=== PATIENT | female | born 1980 | race Caucasian/White ===

== ENCOUNTER 2021-03-10 09:33 | Inpatient (IN) | payer MEDICAID ==
[2021-03-07 13:31] LABS: BASOPHILS % (AUTO) 0.4 % (0-1); EOSINOPHILS % (AUTO) 0.6 % (0-6); LYMPHOCYTES # (AUTO) 1.8 X10'3 (1.1-4.8); LYMPHOCYTES % (AUTO) 23.9 % (21-51); MEAN CORPUSCULAR VOLUME 78.8 FL (78-98); MEAN PLATELET VOLUME 8.7 FL (7.4-10.4); MONOCYTES # (AUTO) 0.3 X10'3 (0-0.9); MONOCYTES % (AUTO) 3.8 % (2-12); NEUTROPHILS # (AUTO) 5.5 X10'3 (1.8-7.7); NEUTROPHILS % (AUTO) 71.3 % (42-75); PRE OP HEMATOCRIT 41.5 % (35.0-45.0); PRE OP HEMOGLOBIN 13.7 g/dL (12.0-16.0); PRE OP PLATELET COUNT 270 X10'3 (140-440); RED BLOOD COUNT 5.26 X10'6 (4.20-5.60); RED CELL DISTRIBUTION WIDTH 15.2 % (11.5-14.5)
[2021-03-07 13:47] LABS: ALBUMIN 3.6 G/DL (3.4-5.0); ALKALINE PHOSPHATASE 87 IU/L (46-116); BLOOD UREA NITROGEN 12 MG/DL (7-18); CHLORIDE 109 MMOL/L (99-107); PRE OP ALT 29 U/L (30-65); PRE OP ANION GAP 11 (8-16); PRE OP AST 12 U/L (10-37); PRE OP BILIRUB, TOTAL 0.5 MG/DL (0.0-1.0); PRE OP GLUCOSE 127 MG/DL (70-104); PRE OP SODIUM 144 MMOL/L (135-145); TOTAL CARBON DIOXIDE 24.3 MMOL/L (24-32); TOTAL PROTEIN 7.2 G/DL (6.4-8.2); eGFR 62 ML/MIN
[2021-03-10] VITALS (17 sets, daily range): BP systolic 106–147; BP diastolic 58–92
[~2021-03-10] VITALS: Ht 170.2 cm; Wt 128.0 kg
[~2021-03-10 09:33] MED LIST: MEDR150V IM; ceFAZolin 1GM/D5W- ADD-VANTAGE 50 ML IV ONE; cefazolin/dext.iso 2gm/100ml 100 ML IV ONE; famotidine 20mg tablet PO ONE; ringers solution, lacted 1,000 ML IV SCH
[2021-03-10 11:01] LABS: PRE OP PARTIAL THROMB. TIME 26 SECONDS (22-32)
[2021-03-10 11:03] LABS: HCG SERUM QL NEGATIVE
[2021-03-10 12:38] LABS: CLARITY,URINE SLIGHTLY CLOUDY (Clear); COLOR,URINE RED (Yellow); GLUCOSE, URINE NEGATIVE (Neg); KETONES,URINE NEGATIVE (Neg); LEUKOCYTE ESTERASE ,URINE NEGATIVE (Neg); NITRITES, URINE NEGATIVE (Neg); OCCULT BLOOD,URINE LARGE (Neg); PH,URINE 5.5 (4.8-8.0); PROTEIN,URINE 100 mg/dl (Neg)
[2021-03-10 12:40] LABS: UA COLLECTION TYPE CLN CATCH MIDSTREAM
[2021-03-10 12:49] LABS: RBC,URINE TNTC /HPF (0-2)
[2021-03-10 12:50] LABS: BACTERIA,URINE 1+ /HPF (Neg); SQUAMOUS EPITHELIAL CELL,UR FEW /LPF (FEW)
[2021-03-10] MEDS ORDERED: BUPIVAcaine/PF 2.5 mg/ml (0.25%) 30ml vial ONE (14:19)
[2021-03-10] MEDS ORDERED: fentaNYL /PF 50mcg/ml 5ml ampule ONE (14:33)
[2021-03-10] MEDS ORDERED: sevoflurane 250ml liquid IH ONE (14:33)
[2021-03-10] MEDS ORDERED: midazolam 1 mg/ML 2ml injection ONE (14:33)
[2021-03-10] MEDS ORDERED: morphine 4 MG/ML inj SYRINge IV PRN ×2 (16:15→17:45)
[2021-03-10] MEDS ORDERED: proCHLORperazine 10 MG/2 ml inj IV PRN (16:15)
[2021-03-10] MEDS ORDERED: meperidine/PF 25mg/ml syringe IV PRN ×3 (16:15)
[2021-03-10] MEDS ORDERED: morphine 2 MG/ML inj. syringe IV PRN (16:15)
[2021-03-10] MEDS ORDERED: ringers solution, lacted 1,000 ML IV SCH (16:15)
[2021-03-10] MEDS ORDERED: ondansetron/PF 4mg/2ml inj IV PRN ×2 (16:15→17:45)
[2021-03-10] MEDS ORDERED: BUPIVAcaine/PF 2.5mg/ml (0.25%) 10ml vial ONE (17:10)
[2021-03-10] MEDS ORDERED: BUPIVACAINE liposomal/PF 13.3 MG/ML vial IM ONE (17:12)
[2021-03-10] MEDS ORDERED: propofol inj 20 ML IV ONE (17:16)
[2021-03-10] MEDS ORDERED: neostigmine methylsulfate 1 MG/ML 10ml vial ONE (17:16)
[2021-03-10] MEDS ORDERED: acetaminophen 1,000mg/100ml IV 100 ML IV ONE (17:16)
[2021-03-10] MEDS ORDERED: ondansetron/PF 4mg/2ml inj ONE (17:16)
[2021-03-10] MEDS ORDERED: rocuronium 10mg/ml inj IV ONE (17:16)
[2021-03-10] MEDS ORDERED: glycopyrrolate 0.2mg/ml inj ONE (17:16)
[2021-03-10] MEDS ORDERED: LIDOcaine 2% (20mg/ml) 5ml vial ONE (17:16)
[2021-03-10] MEDS ORDERED: dexamethasone sod phosphate 4mg/ml inj. ONE (17:16)
[2021-03-10] MEDS ORDERED: meperidine/PF 25mg/ml syringe ONE (17:36)
[2021-03-10] MEDS ORDERED: HYDROcodone/acetaminophen 10/325mg tab PO PRN (17:45)
--- NOTE | 2021-03-10 18:05 | NUR ---
Received from OR via BED IN STABLE CONDITION , accompanied by Anesthesiologist and PLANIMETER OPERATOR report given by Anesthesiolgist. ABDOMINAL BINDER IN PLACE. VS. STABLE. Addendum: 03/10/21 at 1818 by Guadalupe Roach RN Amended: Links added.
--- NOTE | 2021-03-10 18:53 | NUR ---
PATIENT TRANSFERRED FROM THE PACU TO PATIENTS ROOM PN BED IN STABLE CONDITION AFTER REPORT GIVEN TO BHAVESH FIELDS TAKING OVER PATIENTS CARE. PERSONAL BELONGINGS SENT. Addendum: 03/10/21 at 1999 by Guadalupe Roach RN Amended: Links added.
--- NOTE | 2021-03-10 19:43 | NUR ---
185: Received report from DONNIE Roberts 1909 patient arrived to unit in hospital bed with recovery nurses transporting, patient came up with at bedside and belongings. Abdomen binder is on, abdomen is soft with three lap sites, wo on the left and on on the RUQ. Big band aides covering all three, CDI. POst op VSS started. Will continue to monitor.
[2021-03-10] MEDS: ketorolac trometh. 30mg/ml inj. IV SCH (19:51)
[2021-03-11] VITALS: BP 124/69
[2021-03-11] MEDS ORDERED: ceFAZolin inj. 1,000 MG in dextrose 5%-water 50ml 50 ML IV SCH ×2
[2021-03-11] MEDS: ceFAZolin 1GM/D5W- ADD-VANTAGE 50 ML IV SCH ×2 (00:06→09:46)
[2021-03-11] MEDS: potassium CL 20mEq in D5-1/2NS 1,000 ML IV SCH ×3 (01:45→09:52)
[2021-03-11] MEDS: ketorolac trometh. 30mg/ml inj. IV SCH ×2 (02:13→09:47)
[2021-03-11 04:30] VITALS: BP 103/70
--- NOTE | 2021-03-11 06:15 | NUR ---
Patient in room [facility]. I have received report from DONNIE Velázquez and had the opportunity to ask questions and assume patient care.
--- NOTE | 2021-03-11 06:17 | NUR ---
Problems reprioritized. Patient report given, questions answered & plan of care reviewed with DONNIE Waters.
[2021-03-11 06:30] VITALS: BP 125/78
[2021-03-11 06:51] LABS: BASOPHILS % (AUTO) 0.1 % (0-1); EOSINOPHILS % (AUTO) 0.2 % (0-6); HEMATOCRIT 37.2 % (35.0-45.0); HEMOGLOBIN 12.4 g/dl (12.0-16.0); LYMPHOCYTES # (AUTO) 1.4 X10'3 (1.1-4.8); LYMPHOCYTES % (AUTO) 15.4 % (21-51); MEAN CORPUSCULAR HEMOGLOBIN 26.7 PG (27.0-31.0); MEAN CORPUSCULAR HGB CONC 33.4 g/dL (33.0-36.5); MEAN CORPUSCULAR VOLUME 79.9 FL (78-98); MEAN PLATELET VOLUME 8.4 FL (7.4-10.4); MONOCYTES # (AUTO) 0.6 X10'3 (0-0.9); MONOCYTES % (AUTO) 6.2 % (2-12); NEUTROPHILS # (AUTO) 7.2 X10'3 (1.8-7.7); NEUTROPHILS % (AUTO) 78.1 % (42-75); PLATELET COUNT 277 X10'3 (140-440); RED BLOOD COUNT 4.66 X10'6 (4.20-5.60); RED CELL DISTRIBUTION WIDTH 15.1 % (11.5-14.5); WHITE BLOOD COUNT 9.2 X10'3 (4.5-11.0)
[2021-03-11 07:25] LABS: ALBUMIN 3.1 G/DL (3.4-5.0); ANION GAP 11 (8-16); BLOOD UREA NITROGEN 11 MG/DL (7-18); BUN/CREATININE RATIO 16.4 (6.6-38.0); CALCIUM 8.5 MG/DL (8.5-10.1); CHLORIDE 109 MMOL/L (99-107); CREATININE 0.67 MG/DL (0.40-0.90); GLUCOSE 129 MG/DL (70-104); POTASSIUM 3.6 MMOL/L (3.5-5.1); SODIUM 142 MMOL/L (135-145); TOTAL CARBON DIOXIDE 22.3 MMOL/L (24-32); eGFR > 90 ML/MIN
[2021-03-11 11:00] VITALS: BP 125/66
--- NOTE | 2021-03-11 12:35 | NUR ---
DC inst provided to pt. IV DC'd, tip intact. All belongings sent w/pt. Pt ambulated to vehicle.
== END 2021-03-11 12:43 | disposition home or self-care (01) | DRG 227 ==
LOC: PAS 09:33 → SUR 3N 17:45 → OBSVTOIN 17:45
PROVIDERS: ADMIT Surgery; ATTEND Surgery
PROC: 8E0W4CZ Robotic Assisted Procedure of Trunk Region, Percutaneous Endoscopic Approach (ICD-10-PCS; 2021-03-10)
PROC: 0WUF4JZ Supplement Abdominal Wall with Synthetic Substitute, Percutaneous Endoscopic Approach (ICD-10-PCS; principal; 2021-03-10 14:33)
DX: K43.2 Incisional hernia without obstruction or gangrene (principal)
CPT/HCPCS: 36415; 80048; 80053; 81001; 82948; 84703; 85025; 85610; 85730; 86885; 86900; 86901; 93005; A4215; A4618; C1758; C1781; C9290; G0378; J0131; J0690; J1100; J1885; J2001; J2175; J2250; J2405; J2704; J2710; J3010; J3480; J3490; J7120; U0003

== ENCOUNTER 2022-12-11 06:01 | Inpatient (IN) | payer MEDICAID ==
[2022-12-08 10:37] LABS: CLARITY,URINE SLIGHTLY CLOUDY (Clear); COLOR,URINE YELLOW (Yellow); GLUCOSE, URINE NEGATIVE (Neg); KETONES,URINE NEGATIVE (Neg); LEUKOCYTE ESTERASE ,URINE NEGATIVE (Neg); NITRITES, URINE NEGATIVE (Neg); OCCULT BLOOD,URINE TRACE-INTACT (Neg); PH,URINE 5.5 (4.8-8.0); PROTEIN,URINE NEGATIVE (Neg); UROBILINOGEN,URINE 0.2 E.U/dL (0.2-1.0)
[2022-12-08 10:38] LABS: UA COLLECTION TYPE CLN CATCH MIDSTREAM
[2022-12-08 10:43] LABS: BASOPHILS % (AUTO) 0.4 % (0-1); EOSINOPHILS # (AUTO) 0.1 X10'3 (0-0.9); EOSINOPHILS % (AUTO) 1.6 % (0-6); LYMPHOCYTES # (AUTO) 2.2 X10'3 (1.1-4.8); LYMPHOCYTES % (AUTO) 31.6 % (21-51); MEAN CORPUSCULAR HEMOGLOBIN 24.2 PG (27.0-31.0); MEAN CORPUSCULAR HGB CONC 32.8 g/dL (33.0-36.5); MEAN CORPUSCULAR VOLUME 73.9 FL (78-98); MEAN PLATELET VOLUME 8.8 FL (7.4-10.4); MONOCYTES # (AUTO) 0.4 X10'3 (0-0.9); MONOCYTES % (AUTO) 5.9 % (2-12); NEUTROPHILS # (AUTO) 4.2 X10'3 (1.8-7.7); NEUTROPHILS % (AUTO) 60.5 % (42-75); PRE OP HEMATOCRIT 40.4 % (35.0-45.0); PRE OP HEMOGLOBIN 13.3 g/dL (12.0-16.0); PRE OP PLATELET COUNT 265 X10'3 (140-440); RED BLOOD COUNT 5.47 X10'6 (4.20-5.60); RED CELL DISTRIBUTION WIDTH 17.3 % (11.5-14.5)
[2022-12-08 10:46] LABS: PRE OP PROTIME 10.3 SECONDS (9.0-12.0)
[2022-12-08 10:48] LABS: MUCUS STRANDS MANY /LPF (Neg); SQUAMOUS EPITHELIAL CELL,UR MANY /LPF (FEW)
[2022-12-08 10:48] LABS: BLOOD UREA NITROGEN 13 MG/DL (7-18); BUN/CREATININE RATIO 16.5 (6.6-38.0); CHLORIDE 107 MMOL/L (99-107); CREATININE 0.79 MG/DL (0.40-0.90); PRE OP ANION GAP 12 (8-16); PRE OP GLUCOSE 108 MG/DL (70-104); PRE OP SODIUM 142 MMOL/L (135-145); TOTAL CARBON DIOXIDE 23.5 MMOL/L (24-32)
[2022-12-08 10:49] LABS: ALBUMIN 3.7 G/DL (3.4-5.0); ALKALINE PHOSPHATASE 89 IU/L (46-116); CALCIUM 8.7 MG/DL (8.5-10.1); PRE OP ALT 26 U/L (30-65); PRE OP AST 13 U/L (10-37); PRE OP BILIRUB, TOTAL 0.5 MG/DL (0.0-1.0); TOTAL PROTEIN 7.3 G/DL (6.4-8.2); eGFR 80 ML/MIN
[2022-12-08 10:52] LABS: BACTERIA,URINE 1+ /HPF (Neg); RBC,URINE 0-2 /HPF (0-2); TRANSITIONAL EPI CELLS,URINE FEW /HPF; WBC,URINE 0-4 /HPF (0-4)
[2022-12-08 12:21] LABS: URINE HCG NEGATIVE (NEG)
[~2022-12-11] VITALS: Ht 170.2 cm; Wt 124.3 kg
[2022-12-11] VITALS (33 sets, daily range): BP systolic 107–161; BP diastolic 56–96
[~2022-12-11 06:01] MED LIST changes: -MEDR150V IM; +NO HOME MEDS; -ceFAZolin 1GM/D5W- ADD-VANTAGE 50 ML IV ONE; +ceFOXitin 2GM-NS 100mL ADDvant 100 ML IV ONE; -cefazolin/dext.iso 2gm/100ml 100 ML IV ONE
[2022-12-11] MEDS ORDERED: BUPIVAcaine 0.5% inj/PF 30 ML ONE (06:47)
[2022-12-11] MEDS ORDERED: BUPIVAcaine/PF 5 mg/ml 10ml ONE (10:42)
[2022-12-11] MEDS ORDERED: BUPIVACAINE liposomal/PF 13.3 MG/ML vial IM ONE (10:42)
[2022-12-11] MEDS ORDERED: sevoflurane 250ml liquid IH ONE (10:44)
[2022-12-11] MEDS ORDERED: fentaNYL /PF 50mcg/ml 5ml ampule ONE (10:47)
[2022-12-11] MEDS ORDERED: midazolam 1 mg/ML 2ml injection ONE (10:47)
[2022-12-11] MEDS ORDERED: LIDOcaine 2% (20mg/ml) 5ml vial ONE (11:36)
[2022-12-11] MEDS ORDERED: propofol inj 20 ML IV ONE (11:36)
[2022-12-11] MEDS ORDERED: rocuronium 10mg/ml inj IV ONE ×2 (11:36→11:38)
[2022-12-11] MEDS ORDERED: dexamethasone sod phosphate 4mg/ml inj. ONE (11:39)
[2022-12-11] MEDS ORDERED: ondansetron/PF 4mg/2ml inj ONE (11:39)
[2022-12-11] MEDS ORDERED: sugammadex 200mg/2ml injection IV ONE (14:03)
[2022-12-11] MEDS ORDERED: labetalol 20mg/4ml (5mg/ml) syringe IV PRN (14:05)
[2022-12-11] MEDS ORDERED: proCHLORperazine 10 MG/2 ml inj IV PRN (14:05)
[2022-12-11] MEDS ORDERED: acetaminophen 1,000mg/100ml IV 100 ML IV PRN (14:05)
[2022-12-11] MEDS ORDERED: ondansetron/PF 4mg/2ml inj IV PRN ×2 (14:05→14:15)
[2022-12-11] MEDS ORDERED: hydrALAZINE 20mg/ml inj. IV PRN (14:05)
[2022-12-11] MEDS ORDERED: ketorolac trometh. 30mg/ml inj. IV ONE (14:05)
[2022-12-11] MEDS ORDERED: morphine 2 MG/ML inj. syringe IV PRN (14:05)
[2022-12-11] MEDS ORDERED: ringers solution, lacted 1,000 ML IV SCH (14:05)
[2022-12-11] MEDS ORDERED: morphine 4 MG/ML inj SYRINge IV PRN (14:05)
[2022-12-11] MEDS ORDERED: meperidine/PF 25mg/ml syringe IV PRN ×2 (14:05)
--- NOTE | 2022-12-11 14:14 | NUR ---
Received from OR via , accompanied by Anesthesiologist CLEM AND OR NURSE and report given by Anesthesiolgist. PT IS DROWSY YET RESPONDS TO VERBAL STIMULI. DENIES PAIN OR DISCOMFORT. 4 LAP SITES TO ABDOMEN WITH BANDAIDS; CDI. 20G TO LEFT HAND. SCD'S IN PLACE. PACU LR AT 100/HR. SPOKE WITH PT'S SO AND UPDATED THAT PT IS STAYING ONE NIGHT IN HOSPITAL. Addendum: 12/11/22 at 1447 by Marlen Coates RN Amended: Links added.
[2022-12-11] MEDS ORDERED: naloxone 0.4 mg/ml inj IV PRN (14:15)
[2022-12-11] MEDS: meperidine/PF 25mg/ml syringe IV PRN ×2 (15:57→23:35)
--- NOTE | 2022-12-11 16:24 | NUR ---
Report called to receiving nurse. Transferred via BED AND TWO Belongings BAGS. PT GIANCARLO CALLED WHILE BRINGING PT TO ROOM; ABLE TO GIVE ROOM NUMBER AND HE IS WELCOME TO COME UP TO ROOM. PT DENIES PAIN OR DISCOMFORT. VSS. BED PLACED IN LOWEST POSITION AND LOCKED. BEDSIDE MONITOR ATTACHED TO PT.. Special Issues communicated to receiving nurse. Addendum: 12/11/22 at 1644 by Marlen Coates RN Amended: Links added.
[2022-12-11] MEDS: potassium CL 20mEq in D5-1/2NS 1,000 ML IV SCH ×2 (18:44→22:15)
[2022-12-11] MEDS: ceFAZolin inj. 1,000 MG in dextrose 5%-water 50ml 50 ML IV SCH ×2 (18:44→23:43)
[2022-12-11] MEDS: ketorolac tromethamine 15mg/ml inj. IV PRN (18:53)
[2022-12-11] MEDS: HYDROmorphone inj. 0.5 MG/0.5 ML DISP.SYRIN IV PRN (23:37)
[2022-12-12 02:00] VITALS: BP 117/70
[2022-12-12] MEDS: ketorolac tromethamine 15mg/ml inj. IV PRN (02:08)
[2022-12-12 06:00] VITALS: BP 108/66
[2022-12-12] MEDS: potassium CL 20mEq in D5-1/2NS 1,000 ML IV SCH (06:10)
--- NOTE | 2022-12-12 06:30 | NUR ---
RECEIVED REPORT FROM DONNIE CONKLIN
--- NOTE | 2022-12-12 06:32 | NUR ---
Problems reprioritized. Patient report given, questions answered & plan of care reviewed with ARCELIA. Addendum: 12/12/22 at 0632 by Kemar Prakash RN Amended: Links added.
[2022-12-12] MEDS: HYDROmorphone inj. 0.5 MG/0.5 ML DISP.SYRIN IV PRN (06:56)
[2022-12-12] MEDS: HYDROcodone/acetaminophen 5mg/325mg tablet PO PRN ×2 (08:39→13:41)
== END 2022-12-12 14:00 | disposition home or self-care (01) | DRG 227 ==
LOC: PAS 06:01 → OBSVTOIN 14:15 → SUR 3N 14:15 → PAS 16:22 → OBSVTOIN 12-12 08:42 → INTOOBSV 12-12 08:42
PROVIDERS: ADMIT Surgery; ATTEND Surgery
PROC: 8E0W4CZ Robotic Assisted Procedure of Trunk Region, Percutaneous Endoscopic Approach (ICD-10-PCS; 2022-12-11)
PROC: 3E0T3BZ Introduction of Anesthetic Agent into Peripheral Nerves and Plexi, Percutaneous Approach (ICD-10-PCS; 2022-12-11)
PROC: 3E0T33Z Introduction of Anti-inflammatory into Peripheral Nerves and Plexi, Percutaneous Approach (ICD-10-PCS; 2022-12-11)
PROC: 0WUF4JZ Supplement Abdominal Wall with Synthetic Substitute, Percutaneous Endoscopic Approach (ICD-10-PCS; principal; 2022-12-11 10:44)
DX: K43.2 Incisional hernia without obstruction or gangrene (principal); Z79.899 Other long term (current) drug therapy
CPT/HCPCS: 36415; 71046; 80053; 81001; 81025; 82948; 85025; 85610; 85730; 93005; A4215; A4618; C1758; C1781; C9290; G0378; J0131; J0690; J0694; J1100; J1170; J1885; J2175; J2250; J2405; J2704; J3010; J3480; J3490; J7060; J7120; S0020